=== PATIENT | male | born 1970 | race Two or more races ===

== ENCOUNTER 2021-11-19 08:16 | Day surgery (SDC) | payer OTHER, SELFPAY ==
[~2021-11-19] VITALS: Ht 167.6 cm; Wt 73.0 kg
[2021-11-19] MEDS ORDERED: fentaNYL citrate 0.05 MG/ML VIAL ONE ×2 (10:51→10:53)
[2021-11-19] MEDS ORDERED: MIDAZOLAM 5 MG/5 ML VIAL ONE (10:52)
[2021-11-19] MEDS ORDERED: LIDOCAINE 2% 100 MG/5 ML UJET TP ONE ×2 (10:53→11:10)
[2021-11-19] MEDS ORDERED: fentaNYL citrate 0.05 MG/ML VIAL IVP ONE (11:10)
== END 2021-11-19 11:55 | disposition home or self-care (01) ==
LOC: MDS 08:16 → MMU 08:17 → MDS 11:55
PROVIDERS: ATTEND Internal Medicine Gastroenterology
DX: Z12.11 Encounter for screening for malignant neoplasm of colon (principal); D64.9 Anemia, unspecified; K59.00 Constipation, unspecified; Z20.822 Contact with and (suspected) exposure to COVID-19
CPT/HCPCS: 45378; 87426; J3010; J2250